=== PATIENT | male | born 1965 | race Caucasian/White ===

== ENCOUNTER 2022-09-24 14:47 | Outpatient (REF) | payer OTHER, SELFPAY ==
--- NOTE | ~2022-09-24 | US_ITS ---
EXAMINATION: US SCROTUM CLINICAL INFORMATION: Massive scrotum.. COMPARISON: None available. TECHNIQUE: A sonogram of the scrotum was performed assessing gross-scale appearance and color Doppler flow. Spectral Doppler analysis of the arterial and venous flow were performed in the testes bilaterally. FINDINGS: RIGHT: Right testicle measures 5.0 2.0, 3.1 cm, volume 16.2 mL. No focal testicular parenchymal lesions are visualized. Spectral Doppler analysis of the arterial and venous flow is normal in the right testis. Right epididymal head is normal in size. No right hydrocele or varicocele is seen. Right epididymal Doppler flow is there are multiple epidural head cyst largest measuring 0.3 x 0.3 x 0.3 cm. LEFT: Left testicle measures 5.0 x 2.1 x 2.9 cm, volume 15.9 mL. No focal testicular parenchymal lesions are visualized. Spectral Doppler analysis of the arterial and venous flow is normal in the left testis. There is mild tubular ectasia consistent with rete testes. Left epididymal head is normal in size. No left hydrocele or varicocele is seen. Left epididymal Doppler flow is normal. There is a large epididymal head cyst measuring 2.1 x 1.5 x 1.6 which is likely palpable area by the patient US/US scrotum IMPRESSION: 1. Bilateral epididymal head cysts. 2. Tubular ectasia of left rete testes. Otherwise both testes are unremarkable. 3. There is no hydrocele or varicocele. Normal Doppler flow to both testes and epididymis.
== END 2022-09-24 14:48 | disposition home or self-care (01) ==
LOC: HO.US 14:47
PROVIDERS: PCP Internal Medicine; Visit Provider Internal Medicine
DX: N50.89 Other specified disorders of the male genital organs (principal)
CPT/HCPCS: 76870

== ENCOUNTER → 2022-10-15 08:37 | Outpatient (BNVA) | payer OTHER, SELFPAY | PROVIDERS: PCP Internal Medicine; Visit Provider Nurse Practitioner Family ==

== ENCOUNTER → 2022-11-13 11:26 | Outpatient (BNVA) | payer OTHER, SELFPAY | PROVIDERS: PCP Internal Medicine; Visit Provider Nurse Practitioner Family ==

== ENCOUNTER 2023-07-23 10:03 | Outpatient (AMB) | payer OTHER, SELFPAY ==
[2023-07-23 10:09] VITALS: BP 132/86; PULSE 84; O2SAT 99; BMI 32.7
--- NOTE | 2023-07-23 10:09 | A.OFFPC_ITS ---
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 Accompanied by: Self / Same As Patient Allergies No Known Allergies Allergy (Verified 11/13/22 11:28) Medication List - Last Reconciled 07/23/23 by Eb Dorsey MD azelaic acid 15% (Finacea) 1 appl topical BID clotrimazole-betamethasone 1-0.05 % 1 appl topical BID 2 weeks levothyroxine 150 mcg PO DAILY 90 days Tobacco use date assessed: 07/23/23 Dental Screening Dental Screen Date: 07/23/23 Did you have a dental visit in the last 12 months?: Yes Did you have a dental problem in the last 6 months where you did not have access to dental care?: No Was dental information given to patient?: Patient has dentist HPI Annual PE HPI Details hypothyroidism on rx; doing well and compliant [facility] Medical History Hypothyroidism Obesity Surgical History History of cataract surgery Family History Father Lung cancer Mother Hypertension Hyperlipidemia Sister No problems noted. Social History Housing: House Alcohol intake: current Alcohol intake frequency: a few times a week Patient Tobacco Use Status: Never used Tobacco Tobacco use type: Cigarette e-Cigarette/Vaping Use: Never Used Second Hand Smoke Exposure: No service: No Current occupational status: employed Cognitive needs: No Hearing needs: No Vision needs: No Questionnaire PHQ-9 Over the last 2 weeks, how often have you been bothered by any of the following problems? 1. Little interest or pleasure in doing things: not at all 2. Feeling down, depressed, or hopeless: not at all 3. Trouble falling or staying asleep, or sleeping too much: not at all 4. Feeling tired or having little energy: not at all 5. Poor appetite or overeating: not at all 6. Feeling bad about yourself - or that you are a failure or have let yourself or your family down: not at all 7. Trouble concentrating on things, such as reading the newspaper or watching television: not at all 8. Moving or speaking so slowly that other people could have noticed. Or the opposite - being so fidgety or restless that you have been moving around a lot more than usual: not at all 9. Thoughts that you would be better off or of hurting yourself in some way: not at all Total score: 0 Depression Screening Interpretation: Negative Depression Screening Done: Yes 67833 - PHQ-9 Billing: Yes Source: Developed by Drs. Eugenio Linder, Mirta Hummel, Geovanny Soni and colleagues, with an educational yomi from [employer]. Thrive Questionnaire Date Thrive assessed: 07/23/23 I am a: Patient What is your living situation today?: I have a steady place to live Within the past 12 months, did the food you bought not last and you didn't have the money to get more?: Never true Within the past 12 months, did you worry whether your food would run out before you got money to buy more?: Never true Do you have trouble paying for medicines?: No Do you have trouble getting transportation to medical appointments?: No Do you have trouble paying your heating and electricity bill?: No Do you have trouble taking care of your child, family member or friend?: No Do you have trouble with day-to-day activities such as bathing, preparing meals, shopping, managing finances, etc.?: No Are you currently unemployed and looking for a job?: No Are you interested in more education?: No Please select the resources that you would like help with: None THRIVE Score: 0 AUDIT C Alcohol Use Questionnaire (AUDIT-C) 1. How often do you have a drink containing alcohol?: 2-3 times a week 2. How many drinks containing alcohol do you have on a typical day when you are drinking?: 1 or 2 3. How often do you have six or more drinks on one occasion?: Never Total Score: 3 Score Reviewed/Action Taken: Yes GERONIMO-7 AMB Questionnaire GERONIMO-7 Date GERONIMO - 7 assessed: 02/28/24 Feeling nervous, anxious, or on edge: 0 = Not at all Not being able to stop or control worryin = Not at all Worrying too much about different things: 0 = Not at all Trouble relaxin = Not at all Being so restless that it is hard to sit still: 0 = Not at all Becoming easily annoyed or irritable: 0 = Not at all Feeling afraid as if something awful might happen: 0 = Not at all Total GERONIMO-7 score (0-4 normal; 5-9 mild; 10-14 moderate; 15-21 severe): 0 Source: Developed by Drs. Eugenio Linder, Mirta Hummel, Geovanny Soni and colleagues, with an educational yomi from [employer]. GERONIMO-7 Assessment Billing GERONIMO-7 Assessment Tool: GERONIMO-7 Assessment 85539 Review of Systems Const Denies chills, Denies fatigue, Denies headache(s) and Denies weight loss Eyes Denies change in vision, Denies diplopia and Denies eye pain ENT Denies vertigo, Denies dizziness, Denies headache(s) and Denies nasal discharge Card Denies chest pain, Denies rapid heart rate and Denies dyspnea on exertion Resp Denies chest congestion, Denies cough, Denies pain with cough and Denies dyspnea on exertion GI Denies abdominal pain, Denies hematochezia and Denies change in bowel habits Musc Denies myalgias, Denies arthralgias and Denies joint swelling Skin/Breast Denies lesions and Denies unusual bruising Neuro Denies vertigo, Denies dizziness, Denies headache(s) and Denies focal weakness Endo Denies fatigue Physical exam (Primary Care) Vital Signs: Last Vital Signs Pulse 84 07/23/23 10:09 BP 132/86 07/23/23 10:09 Pulse Ox 99 07/23/23 10:09 Oxygen Delivery Method Room Air 07/23/23 10:09 BMI result Body Mass Index 32.7 Tobacco/Smoking Status: Tobacco use Status Tobacco use date assessed 07/23/23 07/23/23 10:15 Patient Tobacco Use Status Never used Tobacco 07/23/23 10:09 Tobacco use type Cigarette 07/23/23 10:09 e-Cigarette/Vaping Use Never Used 07/23/23 10:09 PHQ-9: PHQ-9 Score PHQ-9: Total score 0 07/23/23 10:15 Depression Screening Interpretation: Negative Thrive Assessment: Date of Thrive Assessment Date Thrive assessed 07/23/23 07/23/23 10:15 Const General: cooperative, healthy appearing and no acute distress Orientation/consciousness: oriented to person, oriented to place and oriented to time HENWV Head: Yes normal to inspection, Yes normocephalic and Yes atraumatic Mouth: Normal oral and palatal mucosa present and tongue normal Throat: Yes posterior oropharynx normal and Yes uvula midline Eyes General: appearance normal, both eyes and all related structures Neck Neck: Yes normal visual inspection, Yes full ROM and Yes no lymphadenopathy Thyroid: Thyroid normal Carotids: normal carotid upstroke Chest Chest palpation & inspection: normal inspection of the chest Resp Effort & Inspection: normal respiratory effort and able to speak in complete sentences Auscultation: clear to auscultation bilaterally Cardio Jugular venous distension: no JVD Palpation: normal PMI Rate: regular rate Rhythm: regular rhythm Heart sounds: S1 normal heart sound present and S2 normal heart sound present GI Inspection: Yes normal to inspection Palpation (GI): Soft to palpation and No hepatosplenomegaly present Auscultation: normal bowel sounds General: Yes no CVA tenderness Back/Spine/Pelvis Back: no CVA tenderness Skin General skin exam: no rashes or lesions noted Neuro General: oriented to person, oriented to place and oriented to time Extrem General: Yes normal to inspection and Yes full ROM Assessment and Plan Assessment & Plan (1) Physical exam: Code(s): Z00.00 - Encounter for general adult medical examination without abnormal findings Plan: stable; do labs (2) Hypothyroidism: Code(s): E03.9 - Hypothyroidism, unspecified Plan: stable; same rx Orders: Orders Lipid Panel Today E78.5 - Hyperlipidemia, unspecified Complete Blood Count Auto Diff Today D64.9 - Anemia, unspecified Thyroid Stimulating Hormone Today E03.9 - Hypothyroidism, unspecified Comprehensive [place]. Panel Fast Today N28.9 - Disorder of kidney and ureter, unspecified Medications: Refilled clotrimazole-betamethasone 1-0.05 % 1 appl topical BID 45 grams 3RF 2 weeks azelaic acid 15% (Finacea) 1 appl topical BID 50 grams 8RF Coding Level of Care Code Est Pt Prev Care 40-64y(73343) Diagnoses Physical exam Z00.00 Hypothyroidism E03.9 Additional Codes GERONIMO-7 Assessment Billing - GERONIMO-7 Assessment Tool: GERONIMO-7 Assessment [id number] ([id number])
== END 2023-07-23 10:40 | disposition home or self-care (01) ==
PROVIDERS: PCP Internal Medicine; Visit Provider Internal Medicine
DX: Z00.00 Encounter for general adult medical examination without abnormal findings (principal); E03.9 Hypothyroidism, unspecified
CPT/HCPCS: 99396

== ENCOUNTER 2023-12-04 09:48 | Outpatient (AMB) | payer OTHER, SELFPAY ==
--- NOTE | 2023-12-04 09:57 | A.OFFPC_ITS ---
Vital Signs 12/04/23 09:58 Height 6 ft Weight 244 lb 6 oz BMI 33.1 BP 130/70 Blood Pressure Location Lt brachial Position Sitting Pulse 78 Pulse Source Pulse Oximeter Pulse Oximetry (%) 100 Oxygen Delivery Method Room Air Intake Visit Reasons: lump on left foot/pinky Intake Note: Patient is here to follow up on lump on left pinky toe. 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 Accompanied by: Self / Same As Patient Allergies No Known Allergies Allergy (Verified 12/04/23 09:58) Medication List - Last Reconciled 12/05/23 by Eb Dorsey MD azelaic acid 15% (Finacea) 1 appl topical BID clotrimazole-betamethasone 1-0.05 % 1 appl topical BID 2 weeks levothyroxine 150 mcg PO DAILY 90 days Tobacco use date assessed: 12/04/23 Dental Screening Dental Screen Date: 07/23/23 HPI lump on left foot/pinky HPI Details has toenail fungus; needs to see podiatry [facility] Medical History Hypothyroidism Obesity Surgical History History of cataract surgery Family History Father Lung cancer Mother Hypertension Hyperlipidemia Sister No problems noted. Social History Housing: House Alcohol intake: current Alcohol intake frequency: a few times a week Patient Tobacco Use Status: Never used Tobacco Tobacco use type: Cigarette e-Cigarette/Vaping Use: Never Used Second Hand Smoke Exposure: No service: No Current occupational status: employed Cognitive needs: No Hearing needs: No Vision needs: No Questionnaire Thrive Questionnaire Date Thrive assessed: 07/23/23 GERONIMO-7 AMB Questionnaire GERONIMO-7 Date GERONIMO - 7 assessed: 07/23/23 Source: Developed by Drs. Eugenio Linder, Mirta Hummel, Geovanny Soni and colleagues, with an educational yomi from [employer]. Review of Systems Const Denies chills, Denies headache(s) and Denies weight loss ENT Denies headache(s) Card Denies chest pain, Denies syncope, Denies irregular heart rhythm and Denies dyspnea Resp Denies chest congestion, Denies cough and Denies dyspnea GI Denies abdominal pain, Denies change in stool character, Denies nausea and Denies vomiting Musc Denies deformity and Denies joint swelling Neuro Denies syncope and Denies headache(s) Physical exam (Primary Care) Vital Signs: Last Vital Signs Pulse 78 12/04/23 09:58 BP 130/70 12/04/23 09:58 Pulse Ox 100 12/04/23 09:58 Oxygen Delivery Method Room Air 12/04/23 09:58 BMI result Body Mass Index 33.1 Tobacco/Smoking Status: Tobacco use Status Tobacco use date assessed 12/04/23 12/04/23 10:01 Patient Tobacco Use Status Never used Tobacco 12/04/23 10:01 Tobacco use type Cigarette 12/04/23 10:01 e-Cigarette/Vaping Use Never Used 12/04/23 10:01 Thrive Assessment: Date of Thrive Assessment Date Thrive assessed 07/23/23 12/04/23 10:01 Const General: cooperative, comfortable, no acute distress and alert Neck Neck: Yes no lymphadenopathy Thyroid: Thyroid normal Resp Effort & Inspection: normal respiratory effort Auscultation: clear to auscultation bilaterally Percussion: percussion normal Cardio Jugular venous distension: no JVD Palpation: normal PMI Rate: regular rate Rhythm: regular rhythm Heart sounds: S1 normal heart sound present and S2 normal heart sound present GI Inspection: Yes normal to inspection Palpation (GI): No hepatosplenomegaly present Skin Other: toenail fungus Extrem General: Yes no clubbing, cyanosis or edema Assessment and Plan Assessment & Plan (1) Toenail fungus: Code(s): B35.1 - Tinea unguium Plan: referred Orders: Referrals Podiatry Referral R29.91 - Unspecified symptoms and signs involving the musculoskeletal system Coding Level of Care Code Est Pt Level 3 (38848) Diagnoses Toenail fungus B35.1
[2023-12-04 09:58] VITALS: BP 130/70; PULSE 78; O2SAT 100; BMI 33.1
== END 2023-12-04 10:13 | disposition home or self-care (01) ==
PROVIDERS: PCP Internal Medicine; Visit Provider Internal Medicine
DX: B35.1 Tinea unguium (principal)
CPT/HCPCS: 99213

== ENCOUNTER 2024-01-29 11:39 | Outpatient (AMB) | payer OTHER, SELFPAY ==
[2024-01-29 11:40] VITALS: BP 154/86; PULSE 76; O2SAT 98; BMI 32.8
--- NOTE | 2024-01-29 11:40 | A.OFFPC_ITS ---
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 Accompanied by: Self / Same As Patient Allergies No Known Allergies Allergy (Verified 01/29/24 11:41) Medication List - Last Reconciled 01/29/24 by Eb Dorsey MD azelaic acid 15% (Finacea) 1 appl topical BID clotrimazole-betamethasone 1-0.05 % 1 appl topical BID 2 weeks levothyroxine 150 mcg PO DAILY 90 days Tobacco use date assessed: 12/04/23 Dental Screening Dental Screen Date: 07/23/23 HPI Ongoing knee pain HPI Details injured left kne a few weeks ago; no OA but an effusion on xr PFSH Medical History Hypothyroidism Obesity Surgical History History of cataract surgery Family History Father Lung cancer Mother Hypertension Hyperlipidemia Sister No problems noted. Social History Housing: House Alcohol intake: current Alcohol intake frequency: a few times a week Patient Tobacco Use Status: Never used Tobacco Tobacco use type: Cigarette e-Cigarette/Vaping Use: Never Used Second Hand Smoke Exposure: No service: No Current occupational status: employed Cognitive needs: No Hearing needs: No Vision needs: No Questionnaire PHQ-9 Over the last 2 weeks, how often have you been bothered by any of the following problems? 1. Little interest or pleasure in doing things: not at all 2. Feeling down, depressed, or hopeless: not at all 3. Trouble falling or staying asleep, or sleeping too much: not at all 4. Feeling tired or having little energy: not at all 5. Poor appetite or overeating: not at all 6. Feeling bad about yourself - or that you are a failure or have let yourself or your family down: not at all 7. Trouble concentrating on things, such as reading the newspaper or watching television: not at all 8. Moving or speaking so slowly that other people could have noticed. Or the opposite - being so fidgety or restless that you have been moving around a lot more than usual: not at all 9. Thoughts that you would be better off or of hurting yourself in some way: not at all Total score: 0 Depression Screening Interpretation: Negative Depression Screening Done: Yes 24743 - PHQ-9 Billing: Yes Source: Developed by Drs. Eugenio Linder, Mirta Hummel, Geovanny Soni and colleagues, with an educational yomi from [employer]. Thrive Questionnaire Date Thrive assessed: 07/23/23 AUDIT C Alcohol Use Questionnaire (AUDIT-C) 1. How often do you have a drink containing alcohol?: 2-3 times a week 2. How many drinks containing alcohol do you have on a typical day when you are drinking?: 1 or 2 3. How often do you have six or more drinks on one occasion?: Never Total Score: 3 Score Reviewed/Action Taken: Yes GERONIMO-7 AMB Questionnaire GERONIMO-7 Date GERONIMO - 7 assessed: 07/23/23 Source: Developed by Drs. Eugenio Linder, Mirta Hummel, Geovanny Soni and colleagues, with an educational yomi from [employer]. Review of Systems Const Denies chills, Denies headache(s) and Denies weight loss ENT Denies headache(s) Card Denies chest pain, Denies syncope, Denies irregular heart rhythm and Denies dyspnea Resp Denies chest congestion, Denies cough and Denies dyspnea GI Denies abdominal pain, Denies change in stool character, Denies nausea and Denies vomiting Musc Denies deformity and Denies joint swelling Neuro Denies syncope and Denies headache(s) Physical exam (Primary Care) Vital Signs: Last Vital Signs Pulse 76 01/29/24 11:40 BP 154/86 H 01/29/24 11:40 Pulse Ox 98 01/29/24 11:40 Oxygen Delivery Method Room Air 01/29/24 11:40 BMI result Body Mass Index 32.8 Tobacco/Smoking Status: Tobacco use Status Tobacco use date assessed 12/04/23 01/29/24 11:45 Patient Tobacco Use Status Never used Tobacco 01/29/24 11:45 Tobacco use type Cigarette 01/29/24 11:45 e-Cigarette/Vaping Use Never Used 01/29/24 11:45 PHQ-9: PHQ-9 Score PHQ-9: Total score 0 01/29/24 11:45 Depression Screening Interpretation: Negative Thrive Assessment: Date of Thrive Assessment Date Thrive assessed 07/23/23 01/29/24 11:45 Const General: cooperative, comfortable, no acute distress and alert Neck Neck: Yes no lymphadenopathy Thyroid: Thyroid normal Resp Effort & Inspection: normal respiratory effort Auscultation: clear to auscultation bilaterally Percussion: percussion normal Cardio Jugular venous distension: no JVD Palpation: normal PMI Rate: regular rate Rhythm: regular rhythm Heart sounds: S1 normal heart sound present and S2 normal heart sound present GI Inspection: Yes normal to inspection Palpation (GI): No hepatosplenomegaly present Skin General skin exam: no rashes or lesions noted Extrem General: Yes no clubbing, cyanosis or edema Assessment and Plan Assessment & Plan (1) Knee effusion: Code(s): M25.469 - Effusion, unspecified knee Plan: ice nsaids; ref [facility] Orders: Referrals Orthopedics Referral M25.469 - Effusion, unspecified knee Coding Level of Care Code Est Pt Level 3 (00001) Diagnoses Knee effusion M25.469
== END 2024-01-29 11:56 | disposition home or self-care (01) ==
PROVIDERS: PCP Internal Medicine; Visit Provider Internal Medicine
DX: M25.469 Effusion, unspecified knee (principal)
CPT/HCPCS: 99213

== ENCOUNTER 2024-07-26 09:54 | Outpatient (AMB) | payer OTHER, SELFPAY ==
[2024-07-26 09:57] VITALS: BP 154/82; PULSE 81; O2SAT 7; BMI 33.1
--- NOTE | 2024-07-26 09:57 | MHC.PC.OV ---
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 Accompanied by: Self / Same As Patient Allergies No Known Allergies Allergy (Verified 07/26/24 09:57) Medication List - Last Reconciled 07/27/24 by Eb Dorsey MD azelaic acid 15% (Finacea) 1 appl topical BID citalopram (Celexa) 20 mg PO DAILY clotrimazole-betamethasone 1-0.05 % 1 appl topical BID 2 weeks levothyroxine 150 mcg PO DAILY 90 days nystatin 1 appl topical BID Tobacco use date assessed: 07/26/24 Dental Screening Dental Screen Date: 07/26/24 Did you have a dental visit in the last 12 months?: Yes Did you have a dental problem in the last 6 months where you did not have access to dental care?: No Was dental information given to patient?: Patient has dentist HPI Annual Exam HPI Details hypothyroidism and depression on rx; compliant [facility] Medical History Hypothyroidism Obesity Surgical History History of cataract surgery Family History Father Lung cancer Mother Hypertension Hyperlipidemia Sister No problems noted. Social History Housing: House Alcohol intake: current Alcohol intake frequency: a few times a week Patient Tobacco Use Status: Never used Tobacco Tobacco use type: Cigarette e-Cigarette/Vaping Use: Never Used Second Hand Smoke Exposure: No service: No Current occupational status: employed Cognitive needs: No Hearing needs: No Vision needs: No Questionnaire PHQ-9 Over the last 2 weeks, how often have you been bothered by any of the following problems? 1. Little interest or pleasure in doing things: not at all 2. Feeling down, depressed, or hopeless: not at all 3. Trouble falling or staying asleep, or sleeping too much: not at all 4. Feeling tired or having little energy: not at all 5. Poor appetite or overeating: not at all 6. Feeling bad about yourself - or that you are a failure or have let yourself or your family down: not at all 7. Trouble concentrating on things, such as reading the newspaper or watching television: not at all 8. Moving or speaking so slowly that other people could have noticed. Or the opposite - being so fidgety or restless that you have been moving around a lot more than usual: not at all 9. Thoughts that you would be better off or of hurting yourself in some way: not at all Total score: 0 Depression Screening Interpretation: Negative Depression Screening Done: Yes 71805 - PHQ-9 Billing: Yes Source: Developed by Drs. Eugenio Linder, Mirta Hummel, Geovanny Soni and colleagues, with an educational yomi from [employer]. Thrive Questionnaire Date Thrive assessed: 07/22/24 I am a: Patient What is your living situation today?: I have a steady place to live Within the past 12 months, did the food you bought not last and you didn't have the money to get more?: Never true Within the past 12 months, did you worry whether your food would run out before you got money to buy more?: Never true Do you have trouble paying for medicines?: No Do you have trouble getting transportation to medical appointments?: No Do you have trouble paying your heating and electricity bill?: No Do you have trouble taking care of your child, family member or friend?: No Do you have trouble with day-to-day activities such as bathing, preparing meals, shopping, managing finances, etc.?: No Are you currently unemployed and looking for a job?: No Are you interested in more education?: No Please select the resources that you would like help with: None Currently or been in a relationship where the following occur: No concerns reported THRIVE Score: 0 AUDIT C Alcohol Use Questionnaire (AUDIT-C) 1. How often do you have a drink containing alcohol?: 2-3 times a week 2. How many drinks containing alcohol do you have on a typical day when you are drinking?: 1 or 2 3. How often do you have six or more drinks on one occasion?: Never Total Score: 3 GERONIMO-7 AMB Questionnaire GERONIMO-7 Date GERONIMO - 7 assessed: 07/26/24 Feeling nervous, anxious, or on edge: 0 = Not at all Not being able to stop or control worryin = Not at all Worrying too much about different things: 0 = Not at all Trouble relaxin = Not at all Being so restless that it is hard to sit still: 0 = Not at all Becoming easily annoyed or irritable: 0 = Not at all Feeling afraid as if something awful might happen: 0 = Not at all Total GERONIMO-7 score (0-4 normal; 5-9 mild; 10-14 moderate; 15-21 severe): 0 Source: Developed by Drs. Eugenio Linder, Mirta Hummel, Geovanny Soni and colleagues, with an educational yomi from [employer]. GERONIMO-7 Assessment Billing GERONIMO-7 Assessment Tool: GERONIMO-7 Assessment 65418 Review of Systems Const Denies chills, Denies fatigue, Denies headache(s) and Denies weight loss Eyes Denies change in vision, Denies diplopia and Denies eye pain ENT Denies vertigo, Denies dizziness, Denies headache(s) and Denies nasal discharge Card Denies chest pain, Denies rapid heart rate and Denies dyspnea on exertion Resp Denies chest congestion, Denies cough, Denies pain with cough and Denies dyspnea on exertion GI Denies abdominal pain, Denies hematochezia and Denies change in bowel habits Musc Denies myalgias, Denies arthralgias and Denies joint swelling Skin/Breast Denies lesions and Denies unusual bruising Neuro Denies vertigo, Denies dizziness, Denies headache(s) and Denies focal weakness Endo Denies fatigue Physical exam (Primary Care) Vital Signs: Last Vital Signs Pulse 81 07/26/24 09:57 BP 154/82 H 07/26/24 09:57 Pulse Ox 7 L 07/26/24 09:57 Oxygen Delivery Method Room Air 07/26/24 09:57 BMI result Body Mass Index 33.1 Tobacco/Smoking Status: Tobacco use Status Tobacco use date assessed 07/26/24 07/26/24 10:03 Patient Tobacco Use Status Never used Tobacco 07/26/24 10:03 Tobacco use type Cigarette 07/26/24 10:03 e-Cigarette/Vaping Use Never Used 07/26/24 10:03 PHQ-9: PHQ-9 Score PHQ-9: Total score 0 07/26/24 10:03 Depression Screening Interpretation: Negative Thrive Assessment: Date of Thrive Assessment Date Thrive assessed 07/22/24 07/26/24 10:03 Currently or been in a relationship where the following occur: No concerns reported Const General: cooperative, healthy appearing and no acute distress Orientation/consciousness: oriented to person, oriented to place and oriented to time HENMT Head: Yes normal to inspection, Yes normocephalic and Yes atraumatic Mouth: Normal oral and palatal mucosa present and tongue normal Throat: Yes posterior oropharynx normal and Yes uvula midline Eyes General: appearance normal, both eyes and all related structures Neck Neck: Yes normal visual inspection, Yes full ROM and Yes no lymphadenopathy Thyroid: Thyroid normal Carotids: normal carotid upstroke Chest Chest palpation & inspection: normal inspection of the chest Resp Effort & Inspection: normal respiratory effort and able to speak in complete sentences Auscultation: clear to auscultation bilaterally Cardio Jugular venous distension: no JVD Palpation: normal PMI Rate: regular rate Rhythm: regular rhythm Heart sounds: S1 normal heart sound present and S2 normal heart sound present GI Inspection: Yes normal to inspection Palpation (GI): Soft to palpation and No hepatosplenomegaly present Auscultation: normal bowel sounds General: Yes no CVA tenderness Back/Spine/Pelvis Back: no CVA tenderness Skin General skin exam: no rashes or lesions noted Neuro General: oriented to person, oriented to place and oriented to time Extrem General: Yes normal to inspection and Yes full ROM Coding Level of Care Code Est Pt Prev Care 40-64y(51127) Diagnoses Physical exam Z00.00 Hypothyroidism E03.9 Depression F32.A Additional Codes GERONIMO-7 Assessment Billing - GERONIMO-7 Assessment Tool: GERONIMO-7 Assessment [id number] ([id number]) PHQ-9 - 67734 - PHQ-9 Billing: Yes ([id number]) Assessment & Plan Assessment & Plan (1) Physical exam: Code(s): Z00.00 - Encounter for general adult medical examination without abnormal findings Category: Medical Plan: stable (2) Hypothyroidism: Code(s): E03.9 - Hypothyroidism, unspecified Category: Medical Plan: same rx (3) Depression: Code(s): F32.A - Depression, unspecified Category: Medical Plan: same rx Orders: Orders Complete Blood Count Auto Diff 07/26/24 Z13.0 - Encounter for screening for diseases of the blood and blood-forming organs and certain disorders involving the immune mechanism Comprehensive [place]. Panel Fast 07/26/24 Z13.9 - Encounter for screening, unspecified Lipid Panel 07/26/24 Z13.220 - Encounter for screening for lipoid disorders Thyroid Stimulating Hormone 07/26/24 Z13.29 - Encounter for screening for other suspected endocrine disorder
--- OUTSIDE RECORDS SUMMARY | 2024-07-26 11:09 | XMS_ITS | Continuity of Care Document ---
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 Role Phone Willian KELLY, Eb Wheat Primary Care Physician Encounter [facility] [place] Date(s): 05/30/24 - 06/29/24 [facility] [address] [place] [address]- Attending Physician: Diego Townsend Admitting Physician: Diego Townsend Referring Physician: Diego Townsend Encounter Type: Triage Allergies, Adverse Reactions, Alerts No Known Allergies Medications betamethasone-clotrimazole 0.05%-1% topical cream 1 application, Topically, 2 times a day, PRN Rash, # 15 Gm, 0 Refills, Maintenance, 01/10/24 10:20:00 AM EDT, Cream, Partial fill upon patient request if the prescription is for a schedule II opioid drug. Start Date: 01/10/24 Status: Ordered Quantity: 15.0 Unit: g Repeat number: 1 CeleXA 20 mg oral tablet 20 mg, 1, tablet, By Mouth, Daily, Refills 0, Maintenance, 05/30/24 2:07:00 PM EST, Partial fill uponpatient request if the prescription is for a schedule II opioid drug. Start Date: 05/30/24 Status: Ordered Repeat number: 1 Finacea topical to face, Topically, 2 times a day, PRN Other, 0 Refills, Maintenance, 09/17/17 9:17:02 AM EDT Start Date: 09/17/17 Status: Ordered Repeat number: 1 levothyroxine 200 mcg (0.2 mg) intravenous injection 1 tab, By Mouth, Daily, 0 Refills, Maintenance, 09/17/17 9:17:59 AM EDT Start Date: 09/17/17 Status: Ordered Repeat number: 1 Multivitamin 1 tab, By Mouth, Daily, 0 Refills, Maintenance, 09/17/17 9:18:42 AM EDT Start Date: 09/17/17 Status: Ordered Repeat number: 1 Problem List Condition Confirmation Course Effective Dates Status Health St [facility] Informant Encounter for screening colonoscopy Confirmed Active Tubular adenoma of colon - > repeat colonoscopy in 2023 Confirmed Active Patient Care team information Care Team Personnel Name: Willian KELLY, Eb Wheat Position: Reference Physician Member Role: PCP Address: [address] [place] [address] Telecom: Care Team Related Persons Name: CADENCE BONILLA Insurance Providers Guarantor name: JIM HIGHTOWER Health Plan Information #: 1 Payer: [employer] PPO Member Number: NA Policy Number: NA Group Number: [id number]
--- OUTSIDE RECORDS SUMMARY | 2024-07-26 11:10 | XMS_ITS | Patient Health Record ---
Author Organization [facility] Address [address] [place] [address] Care Team Providers Care General Engineer Name Role Phone Eb Dorsey MD Primary Care Provider Max Garcia Unavailable [phone] Allergies No Known Allergies Reason For Referral No Information Medications Medication SIG (Take, Route, Fr equency, Duration) Notes Start Date End Date Status Levothroid 75 MCG 1 tablet every morni ng on an empty stomach Orally Once a day for 30 day(s) Unknown Clotrimazole 1 % 1 application Handkerchief Folder ally Twice a day Active Azelaic Acid 15 % as directed External ly Once a day Active Levothyroxine Sodium Active Social History Tobacco Use: Social History Observation Description Date Details (start date - stop date) Current Smoker NA - NA Tobacco Use/Smoking Question Answer Notes Are you a: current smoker Additional Findings: Tobacco Non-User Current no n-smoker Tobacco use other than smoking: Question Answer Notes Are you an other tobacco user? No Problems Problem Type SNOMED Code ICD Code Onset Dates Problem Status W/U Status Risk Notes Problem [id number] Onychomycosis (B35.1) Active confirmed Vital Signs Height 6 ft in 03/26/2024 Weight 235 lbs 03/26/2024 BMI 31.87 kg/m2 03/26/2024 Encounters Encounter Location Date Provider Diagnosis [facility] [address] [place] [address] 03/26/2024 Max Rivers Pain in right toe(s) M79.674 ; Onychomycosis B35.1 and Pain in left toe(s) M79.675 [facility] [address] [place] [address] 03/19/2024 Max Rivers [facility] [address] [place] [address] 03/22/2024 Max Rivers Assessments Encounter Date Diagnosis (ICD Code) Assessment Notes Treatment Notes Treatment Clinical Notes Section Notes 03/26/2024 Pain in right toe(s) (ICD-10 - M79.674) 03/26/2024 Onychomycosis (ICD-10 - B35.1) 03/26/2024 Pain in left toe(s) (ICD-10 - M79.675) Plan Of Treatment No Information Insurance Providers Payer Name Payer Address Payer Phone Subscriber Number Group Number Insured Name Patient Relationship to Insured Coverage Start Date Coverage End Date [facility] [address] [place] [address] [phone] [id number] Adair Laird Self - patient is the insured Medical (General) History Medical History History ICD Code thyroid disorder chicken pox Broken bones Cataracts Lyme disease thyroid Chicken pox knee arthritis Surgical History Surgery Date(Month/Year) cataract surgery 09/2017
--- OUTSIDE RECORDS SUMMARY | 2024-07-26 11:10 | XMS_ITS ---
Author Organization [facility] Address [address] [place] [address] Care Team Providers Care Oil Dispenser Name Role Phone Eb Dorsey MD Primary Care Provider Max Garcia Unavailable [phone] Allergies No Known Allergies REASON FOR VISIT Fungal Nails Medications Medication SIG (Take, Route, Fr equency, Duration) Notes Start Date End Date Status Levothroid 75 MCG 1 tablet every morni ng on an empty stomach Orally Once a day for 30 day(s) Unknown Clotrimazole 1 % 1 application Flight Operation Coordinator ally Twice a day Active Azelaic Acid 15 % as directed External ly Once a day Active Levothyroxine Sodium Active Social History Tobacco Use: Social History Observation Description Date Details (start date - stop date) Current Smoker NA - NA Tobacco Use/Smoking Question Answer Notes Are you a: current smoker Additional Findings: Tobacco Non-User Current no n-smoker Alcohol Screen Question Answer Notes Did you have a drink containing alcohol in the p ast year? Yes Points 0 Interpretation Negative Tobacco use other than smoking: Question Answer Notes Are you an other tobacco user? No Problems Problem Type SNOMED Code ICD Code Onset Dates Problem Status W/U Status Risk Notes Problem [id number] Onychomycosis (B35.1) Active confirmed Vital Signs Height 6 ft in 03/26/2024 Weight 235 lbs 03/26/2024 BMI 31.87 kg/m2 03/26/2024 Encounters Encounter Location Date Provider Diagnosis [facility] [address] [place] [address] 03/26/2024 Max Rivers Pain in right toe(s) M79.674 ; Onychomycosis B35.1 and Pain in left toe(s) M79.675 Assessments Encounter Date Diagnosis (ICD Code) Assessment Notes Treatment Notes Treatment Clinical Notes Section Notes 03/26/2024 Pain in right toe(s) (ICD-10 - M79.674) 03/26/2024 Onychomycosis (ICD-10 - B35.1) 03/26/2024 Pain in left toe(s) (ICD-10 - M79.675) Plan Of Treatment Next Appt Details Follow Up: prn, Reason: Progress Notes * [place] HIGHTOWEROB:[birth year] (58 yo M)Acc No.[id number]:03/26/2024 Progress Notes Patient:?Adair Hightower Provider:?Max Rivers DPM :1965???Age:58 Y???Sex:Male George e:03/26/2024 Address:[address] [place], [place] [id number] Pcp:Eb Dorsey MD Subjective: * Chief Complaints: * ???Fungal Nails * HPI: ???Painful Nails:?Nature:?aching, tender, discolored, thick.?Location:?Both feet.?Duration:?1 year or more.?Aggravated by:?shoegear causing difficulty standing/walking.?Treatments:?none.? * ROS:?General/Constitutional:?Nausea?denies.?Vomiting?denies.?Hunger Thirst?denies.?Loss appetite?denies.?Chills?denies.?Fatigue?denies.?Fever?denies.?Night Sweats?denies.?Unexplained weight loss?denies.?Unexplained weight gain?denies.?HEENTM:?Dentures?denies.?Dizziness?denies.?Glasses/contacts?admits.?Retinopathy?de nies.?Blurred/double vision?denies.?TMJ?denies.?Discharge/drainage?denies.?Implants?denies.?Sore throat?denies.?Dental implants?denies.?Hard of hearing ?denies.?Difficulty chewing/swallowing/speaking?denies.?Nose bleeds?denies.?Sore mouth?denies.?Respiratory:?On Oxygen?denies.?Pneumonia/pleurisy?denies.?Bronchitis?denies.?Emphysema?denies.?C oughing?denies.?Cough blood?denies.?Shortness of breath?denies.?Wheezing?denies.?Cardiovascular:?Pacemaker?denies.?MVP?denies.?WPW?denies.?CHF?denies.?Heart attack?denies.?Septal defect?denies.?Rapid beat?denies.?Chest pain ?denies.?Atrial Fib.?denies.?Murmur/Palpitations?denies.?Gastrointestinal:?Hemorrhoids?denies.?Stomach/Abdominal pain?denies.?Dark blood stool?denies.?Irritable bowel ?denies.?Constipation?denies.?Diarrhea?denies.?Hematology:?Swelling?denies.?Clots?denies.?Varicose Veins?denies.?Bruising?denies.?Bleeding problem?denies.?Genitourinary:?Blood urine?denies.?Frequent/Painfu/urination/bladder control?denies.?Kidney stones?denies.?Infection (UTI)?denies.?Nephropathy?denies.?sex trans dis (STD)?denies.?Prostate?denies.?Musculoskeletal:?Hammertoes?denies.?Bunions?denies.?Back Pain?denies.?Muscle Cramps/ Resting?denies.?Muscle cramps / walking?denies.?Generalized aches and pains?denies.?Weakness?denies.?Integ.:?Mccarthy?denies.?Scars?denies.?Corns/calluses?denies.?Ingrown nails?admits.?Painful nails?admits.?Open Sores?denies.?Rashes?denies.?Neurologic:?Difficulty sleeping?denies.?Brain disorder?denies.?Numbness?denies.?Balance trouble?denies.?Confusion?denies.?Fainting/blackouts?denies.?Tingling?denies.?Tr emors?denies.? * Medical History:? * Surgical History:?cataract s urgery 09/2017 * Hospitalization/Major Diagno stic Procedure:?Denies Past Hospitalization * Family History:?Mother: dece ased, diagnosed with Unspecified essential hypertension.?Father: , lung cancer.? * Social History:?Tobacco Use:?Tobacco Use/Smoking?Are you a:?current smoker ?Additional Findings: Tobacco Non-User?Current non-smoker ?Tobacco use other than smoking?Are you an other tobacco user??No ???Drugs/Alcohol:?Drugs?Have you used drugs other than those for medical reasons in the past 12 months??No ?Alcohol Screen?Did you have a drink containing alcohol in the past year??Yes ?Points?0 ?Interpretation?Negative ???Miscellaneous:?Caffeine: yes, 1-2 cups per day. ?Exercise: yes, walking, gym,cooking. ?Marital status: . 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 * Medications:?TakingClotrimaz ole 1 % Lotion 1 application Externally Twice a dayAzelaic Acid 15 % Gel as directed Externally Once a dayLevothyroxine Sodium Taking Clotrimazole 1 % Lotion 1 application Externally Twice a dayTaking Azelaic Acid 15 % Gel as directed Externally Once a dayTaking Levothyroxine Sodium UnknownLevothroid 75 MCG Tablet 1 tablet every morning on an empty stomach Orally Once a dayMedication List reviewed and reconciled with the patientUnknown Levothroid 75 MCG Tablet 1 tablet every morning on an empty stomach Orally Once a dayMedication List reviewed and reconciled with the patient * Allergies:?N.K.D.A.yes[Aller gies Verified] Objective: * Vitals:?Ht: 6 ft, Wt:235, BM I:31.87, Shoe size: 11.5-12, Ht-cm: 182.88 cm, Wt- k.59 kg. * Examination: ???Nails: ?NAILS are:?Elongated, overgrown, dystrophic, lytic, greater than 3mm thick, discolored and friable with crumbly malodorous subungual debris, with pain on palpation , 1-5 B/L.?General Examination: ?GENERAL APPEARANCE:?Reveals a pleasant, alert, well-nourished, well- developed, well hydrated individual, who demonstrates proper attention to hygiene/body habitus, and is in no acute distress, Pt serves as own?historian for office visit today.?ORIENTED:?person, place, and time.?Neurological: ?SENSORY:?Neurological exam reveals intact sensorium, pain sensation normal, vibration sensation intact, pinprick sensation is normal in the lower extremities, Pt denies, anesthesia, burning, paresthesia, tingling, B/L.?DEEP TENDON REFLEXES:?Achilles, 2/4, B/L.?Vascular: ?DP PULSES(B):?3/4, B/L.?PT PULSES(B):?3/4, B/L.?CAPILLARY FILL TIME:?immediate, all digits, B/L.?TROPHIC CONDITION-TEXTURE/ELASTICITY/TURGOR/HAIR GROWTH(B):?normal, B/L.?TEMPERTURE GRADIENT(C):?warm to cool, proximal to distal, B/L.?PIGMENTATION:?normal, B/L.?EDEMA(C):?absent, B/L.?Dermatologic: ?SKIN FINDINGS:?Skin exam reveals normal texture, elasticity, and turgor. There are no masses. The interspaces are clear.?Orthopedic: ?MUSCLE STRENGTH:?5/5 all groups in a symmetrical fashion , B/L.? Assessment: * Assessment: 1.?Pain in right toe(s) - M7 9.674?2.?Onychomycosis - B35.1, Chronic problem, Stable (1=3,2=4)?3.?Pain in left toe(s) - M79.675? Plan: * Treatment: * Procedure Codes:? * Preventive Medicine:? ??Counseling:?Discussion:?-03: Office or other outpatient visit for the evaluation and management of a new patient, which required a medically appropriate history and/or examination and LOW level of DECISION MAKING for: 1 STABLE ACUTE UNCOMPLICATED PROBLEM, 2 OR MORE MINOR PROBLEMS, OR 1 STABLE CHRONIC PROBLEM, THAT POSE(S) A LOW RISK FOR MORBIDITY/MORTALITY. The visit on the day of the encounter encompassed interpreting the data and educating the patient as to the nature of their condition, treatment options available according to their individual PMH, meds, allergies, and overall health/living conditions, as well as any potential risks or complications that may occur from a failure to adhere to, and participate in, the recommended course of therapy. The discussion included a complete verbal, and/or written explanation of the examination results, any x-rays taken, the proposed diagnosis, and outline of the treatment plan. A schedule for future care needs was also explained. The patient verbalized an understanding of the instructions at this time and agreed to be an active participant in their treatment. If the patient should think of any questions or concerns after the visit, I have encouraged the patient to call the office.?Fungal Nail Counseling:?The patient was counseled on the diagnosis, potential etiologies (including, but not limited to, environmental factors, genetic, immune deficiency), and the multiple treatment options for Onychomycosis. We discussed the risks and benefits of each option from performing no treatment, to ultraviolet light shoe treatment, to laser nail treatment, to applying topical antifungals, to taking oral antifungal medication, to surgical removal of the involved nail(s) with or without performing a matricectomy, or any combination thereof. We discussed the advantages and disadvantages of each of possible treatment and importance for adherence to all the recommended therapies for optimum success. This includes the necessity for weekly emery board self nail home debridements, and control the nail and skin environment as much as possible by only using a fresh, dry pair of shoes/socks each day, as well as keeping the skin as dry as possible through the use of sprays/powders if necessary. The patient was instructed to discard the emery board after use to prevent reinfection of the involved nail(s). We discussed the mycological and visual clinical effectiveness of topical vs oral antifungal treatments as well as each ones potential side effects and/or any patient- specific medication interactions. We discussed the reasons behind the important requirement of regular liver function testing with oral antifungal therapy for safety. Patient questions regarding use, dosage, successful outcomes, blood tests, and possible pharmaceutical interactions were reviewed and the patient verbalized that all answers were clearly understood.? * Follow Up:?prn * Images: * Sign off status: Completed true * Provider:?Max Rivers DPM Date:?2023 Generated for Danyelle henry/Melvina/Lupillo on:?07/26/2024 11:09 AM EST History and Physical Notes * HPI (History of Present Illness) Category Sub-Category Detail Notes Category Not es Painful Nails Aggravated by: shoegear causing difficulty standing/walking Duration: 1 year or more Location: Both feet Nature: aching, tender, disc olored, thick Treatments: none Examination Category Sub-Category Detail Notes Category Not es Neurological SENSORY: Neurological exa m reveals intact sensorium, pain sensation normal, vibration sensation intact, pinprick sensation is normal in the lower extremities, Pt denies, anesthesia, burning, paresthesia, tingling, B/L DEEP TENDON REFLEXES: Achilles, 2/4, B/L Dermatologic SKIN FINDINGS: Skin exam reveal s normal texture, elasticity, and turgor. There are no masses. The interspaces are clear Orthopedic MUSCLE STRENGTH: 5/5 all groups in a symm etrical fashion , B/L General Examination GENERAL APPEARANCE: Reveals a pleasant, alert, well- nourished, well-developed, well hydrated individual, who demonstrates proper attention to hygiene/body habitus, and is in no acute distress, Pt serves as own historian for office visit today ORIENTED: person, place, and t kamryn Vascular DP PULSES (B): 3/4, B/L PT PULSES (B): 3/4, B/L CAPILLARY FILL TIME: immediate, all digi ts, B/L TEMPERTURE GRADIENT (C): warm to cool, p roximal to distal, B/L TROPHIC CONDITION-TEXTURE/ELASTICITY/TURGOR/HAIR GROWTH (B): normal, B/L EDEMA (C): absent, B/L PIGMENTATION: normal, B/L Nails NAILS are: Elongated, overg rown, dystrophic, lytic, greater than 3mm thick, discolored and friable with crumbly malodorous subungual debris, with pain on palpation , 1-5 B/L
--- OUTSIDE RECORDS SUMMARY | 2024-07-26 11:10 | XMS_ITS ---
Author Organization [facility] Address [address] [place] [address] Care Team Providers Care Travel Consultant Name Role Phone Eb Dorsey MD Primary Care Provider Max Garcia [phone] REASON FOR VISIT ppwk emailed Encounters Encounter Location Date Provider Diagnosis [facility] [address] [place] [address] 03/19/2024 Max Rivers Plan Of Treatment No Information Progress Notes * [place] HIGHTOWEROB:[birth year] (58 yo M)Acc No.[id number]:03/19/2024 Patient:?Adair Hightower :1965???Age:58 Y???Sex:Male Address:[address] [place] [address] * true * Date:? Generated for Printi elaine/Melvina/eTransmitting on:?07/26/2024 11:09 AM EST
--- OUTSIDE RECORDS SUMMARY | 2024-07-26 11:10 | XMS_ITS ---
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 Generated for Shashanki elaine/Melvina/eTransmitting on:?07/26/2024 11:09 AM EST
== END 2024-07-26 10:24 | disposition home or self-care (01) ==
PROVIDERS: PCP Internal Medicine; Visit Provider Internal Medicine
DX: Z00.00 Encounter for general adult medical examination without abnormal findings (principal); E03.9 Hypothyroidism, unspecified; F32.A Depression, unspecified

== ENCOUNTER → 2024-07-26 09:54 | Outpatient (BNVA) | payer OTHER, SELFPAY | PROVIDERS: PCP Internal Medicine; Visit Provider Internal Medicine | DX: Z00.00 Encounter for general adult medical examination without abnormal findings (principal); E03.9 Hypothyroidism, unspecified; F32.A Depression, unspecified | CPT/HCPCS: 96127 ==

== ENCOUNTER 2024-08-20 07:36 | Outpatient (REF) | payer OTHER, SELFPAY ==
[2024-08-20 11:17] LABS: MANUAL DIFF FLAG NO
[2024-08-20 11:32] LABS: Basophils Percent Auto 0.7 % (0-2); Eosinophils Absolute Auto 0.1 X10*3/uL (0.0-0.4); Eosinophils Percent Auto 2.4 % (0-4); Imm Gran Abs Auto 0.01 X10*3/uL (0.00-0.03); Imm Gran Pct Auto 0.2 % (0.0-0.4); Lymphocytes Absolute Auto 1.4 X10*3/uL (1.2-4.9); Lymphocytes Percent Auto 24.1 % (20-40); Mean Corpuscular Hemoglobin 32.9 pg (27.0-33.0); Mean Corpuscular Volume 96.7 fL (80.0-98.0); Mean Platelet Volume 11.9 fL (9.4-12.4); Monocytes Absolute Auto 0.5 X10*3/uL (0.1-1.2); Monocytes Percent Auto 8.6 % (2-11); Neutrophils Absolute Auto 3.7 x10*3/uL (2.0-8.3); Platelet Count 210 X10*3/uL (160-400); Red Blood Count 4.86 X10*6/uL (4.60-5.80); Red Cell Distribution Width 12.5 % (11.0-16.0); White Blood Count 5.7 X10*3/uL (4.8-10.8)
[2024-08-20 12:12] LABS: Free T4 (Free Thyroxine) 0.87 ng/dL (0.71-1.85)
[2024-08-20 12:21] LABS: Alanine Aminotransferase 37 U/L (0-40); Albumin Level 4.5 g/dL (3.5-5.0); Alkaline Phosphatase 82 U/L (39-117); Anion Gap 11 (12-20); Aspartate Amino Transferase 29 U/L (5-37); Bilirubin Total 0.6 mg/dL (0.0-1.0); Blood Urea Nitrogen 16 mg/dL (9-16); Calcium 9.2 mg/dL (8.4-10.2); Carbon Dioxide 28 mmol/L (22-29); Chloride 105 mmol/L (96-108); Cholesterol 165 mg/dL (<200); Estimated Glomerular Filt Rate > 60; Glucose Fasting 97 mg/dL (60-99); HDL Cholesterol 44 mg/dL (>40); LDL Cholesterol Calculated 104 mg/dL (<100); Potassium 4.3 mmol/L (3.3-5.1); Sodium 140 mmol/L (135-145); Thyroid Stimulating Hormone 19.21 uIU/mL (0.32-4.0); Total Protein 7.1 g/dL (6.5-8.0); Triglycerides 89 mg/dL (<150)
== END 2024-08-20 07:37 | disposition home or self-care (01) ==
LOC: HO.WFDLDS 07:36
PROVIDERS: Referring Provider Internal Medicine; Visit Provider Internal Medicine
DX: Z13.0 Encounter for screening for diseases of the blood and blood-forming organs and certain disorders involving the immune mechanism (principal); Z13.220 Encounter for screening for lipoid disorders; Z13.29 Encounter for screening for other suspected endocrine disorder; E03.9 Hypothyroidism, unspecified
CPT/HCPCS: 36415; 80053; 80061; 84439; 84443; 85025

== ENCOUNTER 2024-12-02 11:19 | Outpatient (REF) | payer OTHER, SELFPAY ==
--- OUTSIDE RECORDS SUMMARY | 2024-12-02 12:02 | XMS_ITS | Continuity of Care Document ---
Author Organization [employer] Address [address] [address] Insurance Providers Payer Plan Claims Address Claims Phone Policy Number Group Number Relation Employer Guarantor Name Guarantor Guarantor Address Guarantor Phone [employer] territory sales executive istra tors [id number] [facility] tel:[phone] [address] [place] [address] tel:[phone] [id number] [phone] Problems Condition ICD9 code ICD10 code SNOMED code Start Date End Date S tatus Encounter for screening for other metabolic disorders Z13.228 Results No Results Allergies, adverse reactions, alerts No known allergies and adverse reactions Medications No administered medications reported Vital Signs No vital signs reported Social History No smoking Hx information available
--- OUTSIDE RECORDS SUMMARY | 2024-12-02 12:02 | XMS_ITS | Continuity of Care Document ---
Author Organization [employer] Address [address] [address] Insurance Providers Payer Plan Claims Address Claims Phone Policy Number Group Number Relation Employer Guarantor Name Guarantor Guarantor Address Guarantor Phone [employer] senior quality assurance specialist istra tors [id number] [facility] tel:[phone] [address] [place] [address] tel:[phone] Problems Condition ICD9 code ICD10 code SNOMED code Start Date End Date S tatus Encounter for screening for other metabolic disorders Z13.228 Results No Results Allergies, adverse reactions, alerts No known allergies and adverse reactions Medications No administered medications reported Vital Signs No vital signs reported Social History No smoking Hx information available
--- OUTSIDE RECORDS SUMMARY | 2024-12-02 12:02 | XMS_ITS | Patient Health Record ---
Author Organization [facility] Address [address] [place] [address] Care Team Providers Care Cnc Maintenance Mechanic Name Role Phone Eb Dorsey MD Primary Care Provider Max Garcia Unavailable [phone] Allergies No Known Allergies Reason For Referral No Information Medications Medication SIG (Take, Route, Fr equency, Duration) Notes Start Date End Date Status Levothroid 75 MCG 1 tablet every morni ng on an empty stomach Orally Once a day; Duration: 30 day(s) Unknown Clotrimazole 1 % 1 application Lead Front Desk Agent ally Twice a day Active Azelaic Acid [...] Problem Status W/U Status Risk Notes Problem Onychomycosis (805828025) Onychomycosis (B35.1) Active confirmed Vital Signs Height 6 ft in 03/26/2024 Weight 235 lbs 03/26/2024 BMI 31.87 kg/m2 03/26/2024 Encounters Encounter Location Date Provider Diagnosis [facility] [address] [place] [address] 03/26/2024 Max Rivers Pain in right toe(s) M79.674 ; Onychomycosis B35.1 and Pain in left toe(s) M79.675 [facility] [place] [address] [place] [address] 03/19/2024 Max Rivers [facility] [place] [address] [place] [address] 03/22/2024 Max Rivers Assessments Encounter Date Diagnosis [...] Insured Coverage Start Date Coverage End Date [facility] [address] [place] [address] [id number] Adair Laird Self - patient is the insured Medical (General) History Medical History History ICD Code thyroid disorder chicken pox Broken bones Cataracts Lyme disease thyroid Chicken pox knee arthritis Surgical History Surgery Date(Month/Year) cataract surgery 09/2017
[2024-12-02 16:55] LABS: Free T4 (Free Thyroxine) 1.05 ng/dL (0.71-1.85); Thyroid Stimulating Hormone 1.39 uIU/mL (0.32-4.0)
== END 2024-12-02 11:20 | disposition home or self-care (01) ==
LOC: HO.WFDLDS 11:19
DX: R79.89 Other specified abnormal findings of blood chemistry (principal); E03.9 Hypothyroidism, unspecified
CPT/HCPCS: 36415; 84439; 84443; 86376

== ENCOUNTER 2025-02-01 09:59 | Outpatient (AMB) | payer OTHER, SELFPAY ==
[2025-02-01 10:02] VITALS: BP 132/80; PULSE 67; O2SAT 96; BMI 29.4
--- NOTE | 2025-02-01 10:02 | MHC.PC.OV ---
Vital Signs 02/01/25 10:02 Height 6 ft Weight 217 lb 2 oz BMI 29.4 BP 132/80 Blood Pressure Location Lt brachial Position Sitting Pulse 67 Pulse Source Pulse Oximeter Pulse Oximetry (%) 96 Oxygen Delivery Method Room Air Intake Visit Reasons: Transfer Care from Dr. 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: No Accompanied by: Self / Same As Patient Allergies No Known Allergies Allergy (Verified 02/01/25 10:37) Medication List - Last Reconciled 02/01/25 by Alin Caban MD azelaic acid 15% (Finacea) 1 appl topical BID citalopram (Celexa) 20 mg PO DAILY clotrimazole-betamethasone 1-0.05 % 1 appl topical BID 2 weeks levothyroxine 175 mcg PO DAILY 90 days nystatin 1 appl topical BID Tobacco use date assessed: 02/01/25 Dental Screening Dental Screen Date: 02/01/25 Did you have a dental visit in the last 12 months?: Yes Did you have a dental problem in the last 6 months where you did not have access to dental care?: No Was dental information given to patient?: Patient has dentist HPI Transfer Care from Dr. Dorsey [facility] f/u HPI Details Patient comes in today for his follow up visit - is transferring over from Dr. 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 Social History (Reviewed 09/09/25 @ 10:05 by BUSHRA [place] Housing: House Alcohol intake: current Alcohol intake frequency: a few times a week Patient Tobacco Use Status: Never used Tobacco Tobacco use type: Cigarette e-Cigarette/Vaping Use: Never Used Second Hand Smoke Exposure: No service: No Current occupational status: employed Cognitive needs: No Hearing needs: No Vision needs: No Questionnaire PHQ-9 Over the last 2 weeks, how often have you been bothered by any of the following problems? 1. Little interest or pleasure in doing things: not at all 2. Feeling down, depressed, or hopeless: not at all 3. Trouble falling or staying asleep, or sleeping too much: not at all 4. Feeling tired or having little energy: not at all 5. Poor appetite or overeating: not at all 6. Feeling bad about yourself - or that you are a failure or have let yourself or your family down: not at all 7. Trouble concentrating on things, such as reading the newspaper or watching television: not at all 8. Moving or speaking so slowly that other people could have noticed. Or the opposite - being so fidgety or restless that you have been moving around a lot more than usual: not at all 9. Thoughts that you would be better off or of hurting yourself in some way: not at all Total score: 0 Depression Screening Interpretation: Negative Depression Screening Done: Yes 33874 - PHQ-9 Billing: Yes Source: Developed by Drs. Eugenio Linder, Mirta Hummel, Geovanny Soni and colleagues, with an educational yomi from [employer] ([employer] Thrive Questionnaire Date Thrive assessed: 02/01/25 I am a: Patient What is your living situation today?: I have a steady place to live Within the past 12 months, did the food you bought not last and you didn't have the money to get more?: Never true Within the past 12 months, did you worry whether your food would run out before you got money to buy more?: Never true Do you have trouble paying for medicines?: No Do you have trouble getting transportation to medical appointments?: No Do you have trouble paying your heating and electricity bill?: No Do you have trouble taking care of your child, family member or friend?: No Do you have trouble with day-to-day activities such as bathing, preparing meals, shopping, managing finances, etc.?: No Are you currently unemployed and looking for a job?: No Are you interested in more education?: No Please select the resources that you would like help with: None Currently or been in a relationship where the following occur: No concerns reported THRIVE Score: 0 AUDIT C Alcohol Use Questionnaire (AUDIT-C) 1. How often do you have a drink containing alcohol?: 2-3 times a week 2. How many drinks containing alcohol do you have on a typical day when you are drinking?: 1 or 2 3. How often do you have six or more drinks on one occasion?: Never Total Score: 3 Score Reviewed/Action Taken: Yes GERONIMO-7 AMB Questionnaire GERONIMO-7 Date GERONIMO - 7 assessed: 02/01/25 Feeling nervous, anxious, or on edge: 0 = Not at all Not being able to stop or control worryin = Not at all Worrying too much about different things: 0 = Not at all Trouble relaxin = Not at all Being so restless that it is hard to sit still: 0 = Not at all Becoming easily annoyed or irritable: 0 = Not at all Feeling afraid as if something awful might happen: 0 = Not at all Total GERONIMO-7 score (0-4 normal; 5-9 mild; 10-14 moderate; 15-21 severe): 0 Source: Developed by Drs. Eugenio Linder, Mirta Hummel, Geovanny Soni and colleagues, with an educational yomi from [employer] ([employer] GERONIMO-7 Assessment Billing GERONIMO-7 Assessment Tool: GERONIMO-7 Assessment 39786 Review of Systems Const Denies chills, Denies daytime sleepiness, Denies fatigue, Denies fever(s) and Denies headache(s) ENT Denies dysphagia, Denies dizziness, Denies otalgia, Denies headache(s), Denies neck pain, Denies odynophagia and Denies sore throat Card Denies chest pain, Denies palpitations and Denies dyspnea Resp Denies chest congestion, Denies cough and Denies dyspnea GI Denies abdominal pain, Denies constipation, Denies dysphagia, Denies heartburn, Denies diarrhea, Denies nausea, Denies odynophagia and Denies vomiting Denies difficulty urinating, Denies dysuria, Denies nocturia and Denies urinary frequency Musc Denies back pain, Reports arthralgias (right wrist - due to tendinitis from walking his dog) and Denies neck pain Skin/Breast Denies rash Neuro Denies dizziness and Denies headache(s) Psych Denies anxiety and Denies depression Endo Denies fatigue and Denies palpitations Physical exam (Primary Care) Vital Signs: Last Vital Signs Pulse 67 02/01/25 10:02 BP 132/80 02/01/25 10:02 Pulse Ox 96 02/01/25 10:02 Oxygen Delivery Method Room Air 02/01/25 10:02 BMI result Body Mass Index 29.4 Tobacco/Smoking Status: Tobacco use Status Tobacco use date assessed 02/01/25 02/01/25 10:06 Patient Tobacco Use Status Never used Tobacco 02/01/25 10:06 Tobacco use type Cigarette 02/01/25 10:06 e-Cigarette/Vaping Use Never Used 02/01/25 10:06 PHQ-9: PHQ-9 Score PHQ-9: Total score 0 02/01/25 11:18 Depression Screening Interpretation: Negative Thrive Assessment: Date of Thrive Assessment Date Thrive assessed 02/01/25 02/01/25 10:06 Currently or been in a relationship where the following occur: No concerns reported Const General: no acute distress and alert HENMT Throat: Yes posterior oropharynx normal and Yes tonsils normal (no TP congestion) Neck Neck: Yes supple and No lymphadenopathy Thyroid: Thyroid normal Resp Auscultation: clear to auscultation bilaterally, no rales and no wheezes Cardio Rate: regular rate Rhythm: regular rhythm Heart sounds: no murmurs GI Palpation (GI): Soft to palpation and nontender Auscultation: normal bowel sounds General: Yes no CVA tenderness Back/Spine/Pelvis Back: no CVA tenderness Thoracic/Lumbar Spine: No lumbar spinal tenderness Skin Rashes: no rashes Extrem General: Yes no clubbing, cyanosis or edema Right upper extremity: wrist Details: tenderness (mild) and normal ROM Results Reviewed Results Reviewed: Laboratory Tests 08/20/24 12/02/24 07:38 11:21 WBC 5.7 Hgb 16.0 Hct 47.0 Plt Count 210 Sodium 140 Potassium 4.3 Creatinine 0.95 Estimated GFR > 60 Fasting Glucose 97 Calcium 9.2 AST 29 ALT 37 Triglycerides 89 Cholesterol 165 LDL Cholesterol, Calc 104 H HDL Cholesterol 44 TSH 1.39 Free T4 1.05 Coding Level of Care Code Est Pt Level 4 (01282) Diagnoses Acquired hypothyroidism E03.9 Episode of recurrent major depressive disorder, unspecified depression episode severity F33.9 Active/Remission status: currently active Depression Type: major depressive disorder Major depression episode severity: unspecified Major depression recurrence: recurrent Overweight (BMI 25.0-29.9) E66.3 Additional Codes GERONIMO-7 Assessment Billing - GERONIMO-7 Assessment Tool: GERONIMO-7 Assessment 15436 ([id number]) PHQ-9 - 81126 - PHQ-9 Billing: Yes ([id number]) Assessment & Plan Assessment & Plan (1) Acquired hypothyroidism: Code(s): E03.9 - Hypothyroidism, unspecified Category: Medical Plan: His TFTs were back to normal when they were last checked in November 2024 Will have patient recheck his TFTs again now in light of his recent weight loss Continue Levothyroxine 175 mcg QD - patient is advised that we will reach out to him over the next few days if he needs to have his current medication dose adjusted again (2) Depression: Code(s): F32.A - Depression, unspecified Category: Medical Qualifiers: Active/Remission status: currently active Depression Type: major depressive disorder Major depression episode severity: unspecified Major depression recurrence: recurrent Qualified Code(s): F33.9 - Major depressive disorder, recurrent, unspecified Plan: Continue Citalopram 20 mg QD (3) Overweight (BMI 25.0-29.9): Code(s): E66.3 - Overweight Category: Medical Plan: Reinforced diet/exercise as tolerated/lose weight He has been able to lose over 25 pounds since his last visit with the keto diet that he is currently on through [employer], where he works at [employer] To return as scheduled in July 2025 for his annual physical examination He is reminded to get his labs done just before he comes in for his appointment in July 2025 so we can also discuss and go over his results during his office visit then Orders: Orders Free T4 (Free Thyroxine) Today E03.9 - Hypothyroidism, unspecified Complete Blood Count Auto Diff 07/24/25 D64.9 - Anemia, unspecified, Z00.00 - Encounter for general adult medical examination without abnormal findings Comprehensive Randolph. Panel Fast 07/24/25 E78.00 - Pure hypercholesterolemia, unspecified, Z00.00 - Encounter for general adult medical examination without abnormal findings Vitamin D 25-OH Total 07/24/25 E55.9 - Vitamin D deficiency, unspecified, Z00.00 - Encounter for general adult medical examination without abnormal findings Thyroid Stimulating Hormone Today E03.9 - Hypothyroidism, unspecified Complete Blood Count Auto Diff Today D64.9 - Anemia, unspecified, E03.9 - Hypothyroidism, unspecified Comprehensive Met. Panel Today E03.9 - Hypothyroidism, unspecified, R63.4 - Abnormal weight loss Lipid Panel 07/24/25 E78.00 - Pure hypercholesterolemia, unspecified, Z00.00 - Encounter for general adult medical examination without abnormal findings Thyroid Stimulating Hormone 07/24/25 E03.9 - Hypothyroidism, unspecified, Z00.00 - Encounter for general adult medical examination without abnormal findings Free T4 (Free Thyroxine) 07/24/25 E03.9 - Hypothyroidism, unspecified, Z00.00 - Encounter for general adult medical examination without abnormal findings UA CC w/rflx Micro + Cult 07/24/25 R30.0 - Dysuria, Z00.00 - Encounter for general adult medical examination without abnormal findings Prostate Specific Antigen 07/24/25 N40.0 - Benign prostatic hyperplasia without lower urinary tract symptoms, Z00.00 - Encounter for general adult medical examination without abnormal findings
--- OUTSIDE RECORDS SUMMARY | 2025-02-01 11:43 | XMS_ITS | Patient Health Record ---
Author Organization 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 [address] [place] [address] 03/26/2024 Max Rivers Pain in right toe(s) M79.674 ; Onychomycosis B35.1 and Pain in left toe(s) M79.675 [facility] [address] [place] [address] 03/19/2024 Max Rivers [facility] [address] [place] [address] 03/22/2024 Max Rivers Assessments Encounter Date Diagnosis [...] Insured Coverage Start Date Coverage End Date [facility] [address] [place] [address] [phone] [id number] Adair Laird Self - patient is the insured Medical (General) History Medical History History ICD Code thyroid disorder chicken pox Broken bones Cataracts Lyme disease thyroid Chicken pox knee arthritis Surgical History Surgery Date(Month/Year) cataract surgery 09/2017
--- OUTSIDE RECORDS SUMMARY | 2025-02-01 11:43 | XMS_ITS | Continuity of Care Document ---
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
--- OUTSIDE RECORDS SUMMARY | 2025-02-01 11:43 | XMS_ITS | Continuity of Care Document ---
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
== END 2025-02-01 10:45 | disposition home or self-care (01) ==
LOC: HO.HMCH 09:59
PROVIDERS: PCP Internal Medicine; Visit Provider Internal Medicine
DX: E03.9 Hypothyroidism, unspecified (principal); F33.9 Major depressive disorder, recurrent, unspecified; E66.3 Overweight

== ENCOUNTER → 2025-02-01 09:59 | Outpatient (BNVA) | payer OTHER, SELFPAY | PROVIDERS: PCP Internal Medicine; Visit Provider Internal Medicine | DX: E66.3 Overweight (principal); E03.9 Hypothyroidism, unspecified; F33.9 Major depressive disorder, recurrent, unspecified; D64.9 Anemia, unspecified; E78.00 Pure hypercholesterolemia, unspecified; N40.0 Benign prostatic hyperplasia without lower urinary tract symptoms; E55.9 Vitamin D deficiency, unspecified; Z68.29 Body mass index [BMI] 29.0-29.9, adult | CPT/HCPCS: 96127 ==

== ENCOUNTER 2025-02-08 08:33 | Outpatient (REF) | payer OTHER, SELFPAY ==
--- OUTSIDE RECORDS SUMMARY | 2025-02-08 10:12 | XMS_ITS | Patient Health Record ---
Author Organization [facility] Address [address] [place] [address] Care Team Providers Care Screw Eye Assembler Name Role Phone Eb Dorsey MD Primary Care Provider Max Garcia Unavailable [phone] Allergies No Known Allergies Reason For Referral No Information Medications Medication SIG (Take, Route, Fr equency, Duration) Notes Start Date End Date Status Levothroid 75 MCG 1 tablet every morni ng on an empty stomach Orally Once a day; Duration: 30 day(s) Unknown Clotrimazole 1 % 1 application Knockdown Man ally Twice a day Active Azelaic Acid [...] Status W/U Status Risk Notes Problem Onychomycosis (548320188) Onychomycosis (B35.1) Active confirmed Vital Signs Height 6 ft in 03/26/2024 Weight 235 lbs 03/26/2024 BMI 31.87 kg/m2 03/26/2024 Encounters Encounter Location Date Provider Diagnosis [facility] [address] [place] [address] 03/26/2024 Max Rivers Pain in right toe(s) M79.674 ; Onychomycosis B35.1 and Pain in left toe(s) M79.675 [facility] [address] [place] [address] 03/19/2024 Max Rivers [facility] [address] [place] [address] 03/22/2024 Max Rivers Assessments Encounter Date Diagnosis [...] Insured Coverage Start Date Coverage End Date [facility] [address] [place] [address] [id number] 01 Adair Laird Self - patient is the insured Medical (General) History Medical History History ICD Code thyroid disorder chicken pox Broken bones Cataracts Lyme disease thyroid Chicken pox knee arthritis Surgical History Surgery Date(Month/Year) cataract surgery 09/2017
[2025-02-08 11:37] LABS: MANUAL DIFF FLAG NO
[2025-02-08 11:57] LABS: Hematocrit 45.1 % (42.0-52.0); Hemoglobin 15.2 g/dl (14.0-18.0); Imm Gran Abs Auto 0.02 X10*3/uL (0.00-0.03); Imm Gran Pct Auto 0.4 % (0.0-0.4); Lymphocytes Absolute Auto 1.2 X10*3/uL (1.2-4.9); Mean Corpuscular HGB Conc 33.7 g/dl (31.0-36.0); Mean Corpuscular Hemoglobin 32.1 pg (27.0-33.0); Mean Corpuscular Volume 95.1 fL (80.0-98.0); NRBC Abs Auto 0.000 X10*3/uL (0.0-0.012); NRBC Pct Auto 0.0 /100WBC (0.0-0.2); Platelet Count 176 X10*3/uL (160-400); Red Blood Count 4.74 X10*6/uL (4.60-5.80); White Blood Count 4.9 X10*3/uL (4.8-10.8)
[2025-02-08 12:21] LABS: Alanine Aminotransferase 37 U/L (0-40); Albumin Level 4.6 g/dL (3.5-5.0); Alkaline Phosphatase 70 U/L (39-117); Anion Gap 10 (12-20); Aspartate Amino Transferase 29 U/L (5-37); Blood Urea Nitrogen 14 mg/dL (9-16); Calcium 9.5 mg/dL (8.4-10.2); Carbon Dioxide 31 mmol/L (22-29); Chloride 103 mmol/L (96-108); Estimated Glomerular Filt Rate > 60; Potassium 4.3 mmol/L (3.3-5.1); Sodium 140 mmol/L (135-145); Total Protein 6.8 g/dL (6.5-8.0)
[2025-02-08 12:43] LABS: Free T4 (Free Thyroxine) 1.32 ng/dL (0.71-1.85); Thyroid Stimulating Hormone 0.05 uIU/mL (0.32-4.0)
== END 2025-02-08 08:34 | disposition home or self-care (01) ==
LOC: HO.WFDLDS 08:33
PROVIDERS: Visit Provider Internal Medicine
DX: D64.9 Anemia, unspecified (principal); R63.4 Abnormal weight loss; E03.9 Hypothyroidism, unspecified
CPT/HCPCS: 36415; 80053; 84439; 84443; 85025